=== PATIENT | male | born 1980 | race Caucasian/White ===

== ENCOUNTER 2018-04-30 00:46 | Emergency (ER) | payer BC ==
[~2018-04-30] VITALS: Ht 177.8 cm; Wt 93.4 kg
[2018-04-30 01:10] VITALS: BP 131/87
--- NOTE | 2018-04-30 03:16 | NUR ---
DR. GIBBONS AT BEDSIDE SPEAKING TO PT ERGARDING RESULTS/ POC
--- NOTE | 2018-04-30 03:20 | NUR ---
Patient discharged to home in stable condition. Written and verbal after care instructions given. Patient verbalizes understanding of instruction. ambulatory with a steady gait. pt w/c to lobby per pt request.
== END 2018-04-30 03:20 | disposition home or self-care (01) ==
LOC: ER 00:57
DX: L55.0 Sunburn of first degree (principal); L03.116 Cellulitis of left lower limb; L03.115 Cellulitis of right lower limb; I10 Essential (primary) hypertension
CPT/HCPCS: A4606; Z7610